=== PATIENT | male | born 1990 | race Caucasian/White ===

== ENCOUNTER 2019-02-20 16:48 | Emergency (ER) | payer OTHER ==
[~2019-02-20] VITALS: Ht 177.8 cm; Wt 76.2 kg
== END 2019-02-20 18:50 | disposition home or self-care (01) ==
LOC: ER 16:48
DX: F19.129 Other psychoactive substance abuse with intoxication, unspecified (principal); Z88.6 Allergy status to analgesic agent
CPT/HCPCS: 99284